=== PATIENT | female | born 1960 ===

== ENCOUNTER → 2017-11-10 | Outpatient (CLI) | payer MEDICARE ==
[~2017-11-10] MED LIST: HEPARIN SODIUM 1000 UNITS/NS 500 ML ONE
== END | disposition home or self-care (01) ==
LOC: RADMN 13:34
PROVIDERS: ATTEND General Practice
DX: Z45.2 Encounter for adjustment and management of vascular access device (principal); Z79.2 Long term (current) use of antibiotics
CPT/HCPCS: 36245; 36569; 76937; 77001; J1644

== ENCOUNTER → 2018-02-10 | Outpatient (CLI) | payer MEDICARE | END | disposition home or self-care (01) | LOC: RADMN 09:16 | PROVIDERS: ATTEND Internal Medicine Geriatric Medicine | DX: N39.0 Urinary tract infection, site not specified (principal); Z79.2 Long term (current) use of antibiotics | CPT/HCPCS: 36569; 77001; J1644 ==